=== PATIENT | male | born 1990 | race Caucasian/White ===

== ENCOUNTER 2020-04-25 14:10 | Observation (INO) | payer OTHER ==
[2020-04-25] VITALS (9 sets, daily range): BP systolic 102–143; BP diastolic 63–91; PULSE 60–94; TEMP 98.2–98.8
[~2020-04-25] VITALS: Ht 193 cm; Wt 123.0 kg
[2020-04-25] MEDS ORDERED: PERCOCET 325 MG1 TA2 PO (14:49)
[2020-04-25] MEDS ORDERED: CEPHALEXIN500 M1 PO (14:49)
[2020-04-25] MEDS ORDERED: ONE-A-DAY ESSE1 EACH PO (14:50)
--- NOTE | 2020-04-25 18:34 | NUR ---
Pt up to room 309, A&O. On bedrest, scrotum in jock strap, ice pack provided. Incentive spirometer at bedside. Pt rating pain 4/10, requesting pain medication, 1 tab percocet provided. LWR 22g intact, flushes w/o difficulty. Pt on room air, breathing is even and unlabored. No further needs expressed. Dinner tray in front of patient.
--- NOTE | 2020-04-25 20:30 | NUR ---
Initial shift assessment done- states pain to scrotum 11/01,, next pain med due at 2230- pt states that will be fine,, dressing to scrotum intact- scant dried blood seen- taped tight with foam tape -- scrotal support on--- ice to scrotum at this time. Voiding clear yellow urine.
--- NOTE | 2020-04-25 23:00 | NUR ---
Medicated with 2 Percocet for scrotal soreness-- scrotal support on, dressings intact with foam tape- ice to scrotum. VSS. Using IS . Voiding well per urinal-on bedrest till AM.
[2020-04-26] VITALS (7 sets, daily range): BP systolic 98–115; BP diastolic 44–67; PULSE 62–85; TEMP 97.9–98.5
--- NOTE | 2020-04-26 05:15 | NUR ---
WEnt to cek on patient to see if he needed some pain meds-- denies need for pain meds- states when he urinated he noted some bleeding "down there". When checked , did have some blood on pad under patient- pt cleaned up-- did see iesha drain to scrotum-kerlix was saturated , did reinforce and added ABD to cover drain- no active bleed noted --new scrotal support applied- ice to scrotum,, VSS, 110/67,80,18--pt states he feels fine- wonders when he can go home
--- NOTE | 2020-04-26 07:00 | NUR ---
Checked on patients scrotal dressing, no new drainage noted since reinforced 2 hours ago-- ice continues at intervals
--- NOTE | 2020-04-26 08:15 | NUR ---
Called put in to Karri JAING just to inform of pts dressing saturated and reinforced at 0500 this morning-- ordered a CBC for this morning-- will be over to see patients soon.
[2020-04-26 08:49] LABS: BASO % 0.1 % (0.0-2.0); GRAN # 13.6 (1.4-6.5); GRAN % 88.4 % (42.2-75.2); HEMATOCRIT 38.3 % (42.0-52.0); HEMOGLOBIN 12.8 g/dl (13.5-18.0); LYMPH # 1.2 (1.2-3.4); LYMPH % 7.6 % (20.0-51.0); MEAN CELL VOLUME 88 fl (80.0-100.0); MEAN CORPUSCULAR HEMOGLOBIN 29 pg (27.0-31.0); MEAN CORPUSCULAR HGB CONC 33 g/dl (33.0-37.0); MEAN PLATELET VOLUME 10.8 fl (7.4-10.4); MONO # 0.5 (0.1-0.6); MONO % 3.5 % (1.7-9.3); PLATELET COUNT 200 K/mm3 (130-400); RED BLOOD COUNT 4.35 M/mm3 (4.20-5.60)
--- NOTE | 2020-04-26 09:53 | NUR ---
patient is resting in bed this morning. patient is reporting some pain so prn percocet was given. patient requeseting a sandwich box as he was still hungry. patient denying any other needs at this time.
--- NOTE | 2020-04-26 11:49 | NUR ---
PATIENT IS RESTING IN BED, PAIN IS TOLERABLE. ICE PACK IN PLACE. NO ISSUES TO NOTE
--- NOTE | 2020-04-26 14:54 | NUR ---
Cuff Setter Lockstitch met with patient to discuss discharge planning. Patient lives in [place] with his , Farhana (ph#[phone]). 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 Patient goes to the [facility] for primary care and obtains medications from [facility] in with no difficulties. Patient does not use any DME and is independent with [facility]. Patient does not have Advance Directives and plans to return home upon discharge. Patient would like to know if his can bring their one month old child to visit. JOHN checked with [facility] who said this would not be allowed. SW provided update to patient who verbalized understanding. No needs identified at this time.
--- NOTE | 2020-04-26 18:22 | NUR ---
patient has had an unevenful day. patient has gotten pain pills when he needs them. dressing was changed as it was bloody. new abd pad was applied. patient stood at the bedside and reported some pain but did not request any pain medication. patient has been using the urinal at bedside. will report off to cnc machinist 2nd shift.
--- NOTE | 2020-04-26 20:00 | NUR ---
Assessment complete. Patient complains of pain 4/10 in scrotal area, which is covered with absorbant dressing and scrotal support wrap. Drainage is from iesha drain and is bloody. 1 percocet administered at this time. Will continue to monitor.
--- NOTE | 2020-04-26 22:54 | NUR ---
Scrotal surgical site dressing is saturated with blood at this time. Dressing is removed and replaced with gauze and ABD. New scortal support wrap is applied as well. Pen bianca drain is draining blood. Patient states when he stands up, pain is intensified. Tylenol is adminsitered for pain at this time, as it is not time for another percocet. Old dressing is left on counter. Will continue to monitor.
[2020-04-27 03:27] VITALS: BP 97/48; PULSE 74; TEMP 98.7
--- NOTE | 2020-04-27 06:17 | NUR ---
Patient's dressing has had to be reinforced x2 times and is still producing consistent amounts of blood from the iesha drain. He has complained of pain 4/10 throughout the night, which has been managed with PO pain meds. No new concerns, will continue to monitor.
[2020-04-27 08:50] VITALS: BP 109/59; PULSE 70; TEMP 98.5
--- NOTE | 2020-04-27 11:17 | NUR ---
First visit from the mailing jogger. No needs right now.
--- NOTE | 2020-04-27 12:07 | NUR ---
PATIENT WAS EDUCATED ON THE DISCHARGE PAPERWORK. IV WAS TAKEN OUT WITH NO DIFFICULTIES. PATIENT WAS WHEELED DOWN TO HIS TRUCK.
== END 2020-04-27 12:00 | disposition home or self-care (01) ==
LOC: SURG 14:10 → MEDICAL 14:20 → INPTSU 14:20 → MEDICAL 14:51 → SURG 16:00 → MEDICAL 04-27 12:00
PROVIDERS: Psychiatry & Neurology Psychiatry; ADMIT Urology
DX: N99.820 Postprocedural hemorrhage of a genitourinary system organ or structure following a genitourinary system procedure (principal); Z98.52 Vasectomy status; Z83.3 Family history of diabetes mellitus; Z90.49 Acquired absence of other specified parts of digestive tract
CPT/HCPCS: A9284; G0378; J1100; J2270; J2405; J2704; J3010; J7120